=== PATIENT | female | born 1940 | race Caucasian/White ===

== ENCOUNTER 2017-06-30 13:43 | Emergency (ER) | payer OTHER ==
[~2017-06-30] VITALS: Ht 165.1 cm; Wt 86.4 kg
[~2017-06-30 13:43] MED LIST: BENA20 PO; IBUP-676 PO; OMEP20TA25 PO; SIMV40TA5 PO; TRAM50TA4 PO
[2017-06-30] MEDS ORDERED: METF500T4 PO (13:47)
[2017-06-30 13:57] LABS: GLUCOSE,POINT OF CARE 177 MG/DL (70-110)
[2017-06-30] MEDS ORDERED: SODIUM CHLORIDE 0.9% 500 ML IV ONE (15:15)
[2017-06-30] MEDS ORDERED: METOCLOPRAMIDE HCL 5 MG/ML 2 ML VIAL IVP ONE (15:15)
[2017-06-30] MEDS ORDERED: KETOROLAC TROMETHAMINE 30 MG/ML VIAL IVP ONE (15:15)
[2017-06-30] MEDS ORDERED: DiphenhydrAMINE HCL 50 MG/ML VIAL IVP ONE (15:15)
[2017-06-30] MEDS ORDERED: ACETAMINOPHEN 500 MG TABLET PO ONE (15:30)
[2017-06-30] MEDS ORDERED: KETOROLAC TROMETHAMINE 30 MG/ML VIAL IM ONE (15:30)
[2017-06-30 15:48] LABS: ANION GAP 9 mmol/L (8-16); CALCIUM, TOTAL 9.2 mg/dL (8.8-10.5); CARBON DIOXIDE 26 mmol/L (22-29); CHLORIDE 103 mmol/L (98-107); CREATININE 0.82 mg/dL (0.60-1.30); GLOMERULAR FILTR. RATE CALC > 60 mL/min (>60); POTASSIUM 3.8 mmol/L (3.5-5.1); SODIUM SERUM 138 mmol/L (136-145); UREA NITROGEN, BLOOD 14 mg/dL (7-18)
[2017-06-30 15:53] LABS: ALANINE AMINOTRANSFERASE 76 U/L (12-78); ALBUMIN 3.6 g/dL (3.4-5.0); ASPARTATE AMINOTRANSFERASE 44 U/L (15-37); BILIRUBIN,TOTAL 0.3 mg/dL (0.1-1.0); TOTAL PROTEIN, SERUM 7.4 g/dL (6.4-8.2)
[2017-06-30 16:07] LABS: BASOPHILS % (AUTO) 0.5 % (0.0-2.0); EOSINOPHILS % (AUTO) 1.1 % (1.0-6.0); HEMATOCRIT 38.9 % (36-46); HEMOGLOBIN 12.9 g/dL (12.0-16.0); LYMPHOCYTES # (AUTO) 3.2 K/uL (1.0-4.8); LYMPHOCYTES % (AUTO) 37.8 % (22.0-44.0); MEAN CORPUSCULAR HEMOGLOBIN 28.3 pg (26.0-34.0); MEAN CORPUSCULAR HGB CONC 33.1 G/dL (31.0-37.0); MEAN CORPUSCULAR VOLUME 86 fL (80-100); MONOCYTES # (AUTO) 0.5 K/uL (0.1-1.0); MONOCYTES % (AUTO) 6.5 % (2.0-9.0); NEUTROPHILS # (AUTO) 4.6 K/uL (1.8-7.7); NEUTROPHILS % (AUTO) 54.1 % (40.0-70.0); PLATELET COUNT (AUTO) 305 K/uL (150-450); RED BLOOD CELL COUNT(AUTO) 4.54 MIL/uL (4.00-5.20); RED CELL DISTRIBUTION WIDTH 13.9 % (11.5-14.5); WHITE BLOOD COUNT (AUTO) 8.5 K/uL (4.5-11.0)
[2017-06-30 16:25] VITALS: BP 147/83
== END 2017-06-30 16:28 | disposition home or self-care (01) ==
LOC: EMS 13:44
DX: R51 Headache (principal); I10 Essential (primary) hypertension; K21.9 Gastro-esophageal reflux disease without esophagitis; E78.00 Pure hypercholesterolemia, unspecified; Z88.0 Allergy status to penicillin; Z88.1 Allergy status to other antibiotic agents
CPT/HCPCS: 36415; 80053; 82962; 85025; 96372; 99284; J1885; J1200; J2765; J7040

== ENCOUNTER 2017-09-16 16:25 | Emergency (ER) | payer OTHER ==
[~2017-09-16] VITALS: Ht 165.1 cm; Wt 86.4 kg
[~2017-09-16 16:25] MED LIST changes: +METF500T4 PO
[2017-09-16 17:17] LABS: GLUCOSE,POINT OF CARE 165 MG/DL (70-110)
[2017-09-16 19:04] VITALS: BP 132/74
[2017-09-16] MEDS: TraMADol HCL 50 MG TABLET PO ONE ×2 (19:26→19:28)
== END 2017-09-16 19:49 | disposition home or self-care (01) ==
LOC: EMS 16:26
DX: M25.562 Pain in left knee (principal); I10 Essential (primary) hypertension; K21.9 Gastro-esophageal reflux disease without esophagitis; E78.00 Pure hypercholesterolemia, unspecified; M19.90 Unspecified osteoarthritis, unspecified site; Z88.0 Allergy status to penicillin; Z88.6 Allergy status to analgesic agent
CPT/HCPCS: 82962; 99284

== ENCOUNTER 2017-09-22 15:50 | Emergency (ER) | payer OTHER ==
[~2017-09-22] VITALS: Ht 167.6 cm; Wt 86.4 kg
[2017-09-22 16:32] LABS: GLUCOSE,POINT OF CARE 137 MG/DL (70-110)
[2017-09-22 18:08] LABS: INFLUENZA TYPE A NEGATIVE FOR TYPE A (NEGATIVE); INFLUENZA TYPE B POSITIVE FOR TYPE B (NEGATIVE)
[2017-09-22] MEDS ORDERED: ACETAMINOPHEN 325 MG TABLET PO ONE (19:00)
[2017-09-22 19:05] LABS: BASOPHILS % (AUTO) 0.3 % (0.0-2.0); EOSINOPHILS % (AUTO) 0.1 % (1.0-6.0); HEMATOCRIT 38.7 % (36-46); HEMOGLOBIN 12.8 g/dL (12.0-16.0); LYMPHOCYTES # (AUTO) 1.9 K/uL (1.0-4.8); LYMPHOCYTES % (AUTO) 26.6 % (22.0-44.0); MEAN CORPUSCULAR HEMOGLOBIN 28.1 pg (26.0-34.0); MEAN CORPUSCULAR VOLUME 85 fL (80-100); MONOCYTES # (AUTO) 0.8 K/uL (0.1-1.0); MONOCYTES % (AUTO) 11.7 % (2.0-9.0); NEUTROPHILS # (AUTO) 4.4 K/uL (1.8-7.7); NEUTROPHILS % (AUTO) 61.3 % (40.0-70.0); PLATELET COUNT (AUTO) 280 K/uL (150-450); RED BLOOD CELL COUNT(AUTO) 4.54 MIL/uL (4.00-5.20); RED CELL DISTRIBUTION WIDTH 14.4 % (11.5-14.5)
[2017-09-22 19:09] LABS: GLUCOSE,POINT OF CARE 205 MG/DL (70-110)
[2017-09-22 19:24] LABS: CREATININE 0.93 mg/dL (0.60-1.30); POTASSIUM 3.8 mmol/L (3.5-5.1)
[2017-09-22 19:31] LABS: ALBUMIN 3.3 g/dL (3.4-5.0); BILIRUBIN,TOTAL 0.2 mg/dL (0.1-1.0); TOTAL PROTEIN, SERUM 7.2 g/dL (6.4-8.2)
[2017-09-22 20:23] VITALS: BP 134/81
== END 2017-09-22 20:25 | disposition home or self-care (01) ==
LOC: EMS 15:51
DX: J10.1 Influenza due to other identified influenza virus with other respiratory manifestations (principal); E78.00 Pure hypercholesterolemia, unspecified; I10 Essential (primary) hypertension; K21.9 Gastro-esophageal reflux disease without esophagitis; M25.562 Pain in left knee; Z88.0 Allergy status to penicillin; Z88.1 Allergy status to other antibiotic agents
CPT/HCPCS: 82948; 82962; 87804; 99285

== ENCOUNTER 2019-10-25 08:48 | Inpatient (IN) | payer OTHER ==
[~2019-10-25] VITALS: Ht 165.1 cm; Wt 86.4 kg
[~2019-10-25 08:48] MED LIST changes: +AMLO5TAB9 PO; +ATOR10TA84 PO; -BENA20 PO; +BUPIVACAINE HCL/PF 0.5% 30 ML VIAL ONE; +BUPIVACAINE LIPOSOME/PF 1.3%-13.3MG/ML SUSPENSION 20 ML VIAL INJ ONE; +GLIP5 PO; -IBUP-676 PO; +LOSA25TA71 PO; +METF-960 PO; -METF500T4 PO; +RINGERS SOLUTION,LACTATED 1,000 ML IV ONE; -SIMV40TA5 PO; +SODIUM CHLORIDE 0.9% 100 ML ONE; -TRAM50TA4 PO; +TRANEXAMIC ACID 1,000 MG in DEXTROSE 5%-WATER 50 ML IV ONE
[2019-10-25] MEDS ORDERED: RINGERS SOLUTION,LACTATED 1,000 ML IV ONE ×2 (09:00→12:03)
[2019-10-25 09:39] LABS: GLUCOMETER DEV NAME(LOC) SDS.; GLUCOSE,POINT OF CARE 155 MG/DL (70-110)
[2019-10-25] MEDS ORDERED: ZOLPIDEM TARTRATE 5 MG TABLET PO PRN (10:00)
[2019-10-25] MEDS ORDERED: ONDANSETRON HCL 4 MG/2 ML VIAL IVP PRN ×2 (10:00→13:15)
[2019-10-25] MEDS ORDERED: FentaNYL CITRATE-PF 100 MCG/2 ML VIAL IVP PRN (10:00)
[2019-10-25] MEDS ORDERED: HYDROmorphone 2 MG/ML SYRINGE IVP PRN ×2 (10:00)
[2019-10-25] MEDS ORDERED: MEPERIDINE-PF 25 MG/ML VIAL IVP PRN (10:00)
[2019-10-25] MEDS ORDERED: SODIUM CL IRRIG SOLN BAG 3,000 ML IRRIG ONE (10:42)
[2019-10-25] MEDS ORDERED: BACITRACIN 50,000 UNITS/VIAL ONE (10:44)
[2019-10-25] MEDS: ACETAMINOPHEN 1000 MG/ISO-OSM 100 ML IV SCH ×3 (10:54→22:34)
[2019-10-25] MEDS ORDERED: CELECOXIB 200 MG CAPSULE PO ONE (11:00)
[2019-10-25] MEDS ORDERED: ZOLPIDEM TARTRATE 10 MG TABLET PO PRN (13:15)
[2019-10-25] MEDS ORDERED: BACITRACIN 28.4 GM OINTMENT TP PRN (13:15)
[2019-10-25] MEDS ORDERED: MAG HYDROX/AL HYDROX/SIMETH 30 ML SUSP UDCUP PO PRN (13:15)
[2019-10-25] MEDS ORDERED: DiphenhydrAMINE HCL 50 MG/ML VIAL IVP PRN (13:15)
[2019-10-25] MEDS ORDERED: BISACODYL 10 MG RECTAL RECTAL SUPPOSITORY PR PRN (13:15)
[2019-10-25] MEDS ORDERED: HYDROmorphone 2 MG/ML SYRINGE ONE (14:09)
[2019-10-25] MEDS ORDERED: ONDANSETRON HCL 4 MG/2 ML VIAL ONE (14:16)
[2019-10-25] MEDS: SODIUM CHLORIDE 0.9% 1,000 ML IV SCH (15:42)
[2019-10-25 16:17] VITALS: BP 130/75
[2019-10-25] MEDS: FERROUS SULFATE 325 MG EC TABLET PO SCH (17:03)
[2019-10-25] MEDS: CELECOXIB 200 MG CAPSULE PO SCH (20:29)
[2019-10-25] MEDS: DOCUSATE SODIUM 100 MG CAPSULE PO SCH (20:29)
[2019-10-25] MEDS: FAMOTIDINE 20 MG TABLET PO SCH (20:29)
[2019-10-25 20:38] VITALS: BP 130/68
[2019-10-25] MEDS ORDERED: VANCOMYCIN HCL 1 GM/D5% WATER 200 ML IV ONE (21:00)
[2019-10-25] MEDS ORDERED: CeFAZolin 1 GM/DEXTROSE 50 ML IV SCH (22:00)
[2019-10-25] MEDS: OxyCODONE HCL 5 MG IR TABLET PO PRN (22:46)
[2019-10-26] MEDS: SODIUM CHLORIDE 0.9% 1,000 ML IV SCH (04:44)
[2019-10-26] MEDS: ACETAMINOPHEN 1000 MG/ISO-OSM 100 ML IV SCH ×2 (04:44→10:55)
[2019-10-26 05:02] VITALS: BP 129/67
[2019-10-26] MEDS ORDERED: FentaNYL CITRATE-PF 100 MCG/2 ML VIAL IVP ONE (05:58)
[2019-10-26] MEDS ORDERED: EPHEDrine SULFATE 50 MG/ML VIAL IM ONE (05:59)
[2019-10-26] MEDS ORDERED: 0.9% SODIUM CHLORIDE 10 ML VIAL IVP ONE (05:59)
[2019-10-26 08:10] VITALS: BP 122/66
[2019-10-26 08:28] LABS: BASOPHILS % (AUTO) 0.3 % (0.0-2.0); EOSINOPHILS % (AUTO) 1.1 % (1.0-6.0); HEMATOCRIT 33.6 % (36-46); HEMOGLOBIN 11.2 g/dL (12.0-16.0); LYMPHOCYTES # (AUTO) 2.3 K/uL (1.0-4.8); LYMPHOCYTES % (AUTO) 24.9 % (22.0-44.0); MEAN CORPUSCULAR HEMOGLOBIN 27.8 pg (26.0-34.0); MEAN CORPUSCULAR HGB CONC 33.3 G/dL (31.0-37.0); MEAN CORPUSCULAR VOLUME 83 fL (80-100); MONOCYTES # (AUTO) 0.8 K/uL (0.1-1.0); MONOCYTES % (AUTO) 8.3 % (2.0-9.0); NEUTROPHILS # (AUTO) 5.9 K/uL (1.8-7.7); NEUTROPHILS % (AUTO) 65.4 % (40.0-70.0); PLATELET COUNT (AUTO) 267 K/uL (150-450); RED BLOOD CELL COUNT(AUTO) 4.03 MIL/uL (4.00-5.20); RED CELL DISTRIBUTION WIDTH 13.5 % (11.5-14.5)
[2019-10-26] MEDS: CELECOXIB 200 MG CAPSULE PO SCH ×2 (09:25→20:52)
[2019-10-26] MEDS: FAMOTIDINE 20 MG TABLET PO SCH ×2 (09:26→20:51)
[2019-10-26] MEDS: OxyCODONE HCL 5 MG IR TABLET PO PRN ×2 (09:26→14:09)
[2019-10-26] MEDS: FERROUS SULFATE 325 MG EC TABLET PO SCH ×2 (09:26→19:08)
[2019-10-26] MEDS: DOCUSATE SODIUM 100 MG CAPSULE PO SCH ×2 (09:26→20:52)
[2019-10-26 11:56] VITALS: BP 142/84
[2019-10-26] MEDS: RIVAROXABAN 10 MG TABLET PO SCH ×2 (13:00→19:08)
[2019-10-26] MEDS: CYCLOBENZAPRINE HCL 10 MG TABLET PO PRN ×2 (14:09→20:52)
[2019-10-26 16:09] VITALS: BP 152/76
[2019-10-26 19:50] VITALS: BP 134/67
[2019-10-26] MEDS: OXYGEN THERAPY IH SCH (20:00)
[2019-10-26] MEDS: OxyCODONE HCL/ACETAMINOPHEN 10-325 MG TABLET PO PRN (23:30)
[2019-10-26 23:33] VITALS: BP 156/80
[2019-10-27 04:00] VITALS: BP 138/74
[2019-10-27] MEDS: OXYGEN THERAPY IH SCH ×2 (08:00→19:36)
[2019-10-27] MEDS: CELECOXIB 200 MG CAPSULE PO SCH ×2 (08:24→19:35)
[2019-10-27] MEDS: FAMOTIDINE 20 MG TABLET PO SCH ×2 (08:24→19:35)
[2019-10-27] MEDS: DOCUSATE SODIUM 100 MG CAPSULE PO SCH ×2 (08:24→19:35)
[2019-10-27] MEDS: FERROUS SULFATE 325 MG EC TABLET PO SCH ×2 (08:24→17:16)
[2019-10-27] MEDS: OxyCODONE HCL/ACETAMINOPHEN 10-325 MG TABLET PO PRN ×2 (08:27→15:22)
[2019-10-27 09:20] VITALS: BP 149/59
[2019-10-27 12:10] VITALS: BP 143/75
[2019-10-27] MEDS: CYCLOBENZAPRINE HCL 10 MG TABLET PO PRN (15:22)
[2019-10-27 17:15] VITALS: BP 143/79
[2019-10-27 19:07] VITALS: BP 147/78
== END 2019-10-27 20:20 | DRG 470 ==
LOC: 6N 08:48 → 4E 13:50
PROVIDERS: ADMIT Orthopaedic Surgery; ATTEND Orthopaedic Surgery
PROC: 0SRD0J9 Replacement of Left Knee Joint with Synthetic Substitute, Cemented, Open Approach (ICD-10-PCS; principal; 2019-10-25 12:30)
DX: M17.12 Unilateral primary osteoarthritis, left knee (principal); E11.9 Type 2 diabetes mellitus without complications; E78.00 Pure hypercholesterolemia, unspecified; I10 Essential (primary) hypertension; E66.9 Obesity, unspecified; Z88.0 Allergy status to penicillin; Z91.040 Latex allergy status; Z68.31 Body mass index [BMI] 31.0-31.9, adult
CPT/HCPCS: 87081; 88300; 93005; 97110; 97116; 97161; 97165; 97530; 97535; C9290; G0238; G0378; J0131; J1170; J2405; J3010; J3370; J3490; J7030; J7050; J7060; J7120

== ENCOUNTER 2021-07-25 11:53 | Emergency (ER) | payer OTHER ==
[~2021-07-25] VITALS: Ht 162.6 cm; Wt 77.3 kg
[~2021-07-25 11:53] MED LIST changes: +AMLO-257 PO; -AMLO5TAB9 PO; -BUPIVACAINE HCL/PF 0.5% 30 ML VIAL ONE; -BUPIVACAINE LIPOSOME/PF 1.3%-13.3MG/ML SUSPENSION 20 ML VIAL INJ ONE; +LEVO-72 PO; +LOSA25TA21 PO; -LOSA25TA71 PO; +METF-1211 PO; -METF-960 PO; -RINGERS SOLUTION,LACTATED 1,000 ML IV ONE; -SODIUM CHLORIDE 0.9% 100 ML ONE; -TRANEXAMIC ACID 1,000 MG in DEXTROSE 5%-WATER 50 ML IV ONE
[2021-07-25 12:51] VITALS: BP 133/76
== END 2021-07-25 13:18 | disposition home or self-care (01) ==
LOC: EMS 11:53
DX: I10 Essential (primary) hypertension (principal); K21.9 Gastro-esophageal reflux disease without esophagitis; E78.00 Pure hypercholesterolemia, unspecified
CPT/HCPCS: 93005; 99283